=== PATIENT | male | born 1950 | race Asian ===

== ENCOUNTER 2019-05-01 10:16 | Emergency (ER) | payer OTHER ==
[~2019-05-01] VITALS: Ht 170.2 cm; Wt 82.1 kg
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
--- NOTE | 2019-05-01 10:52 | NUR ---
x-ray tech at bedside
[2019-05-01 11:46] VITALS: BP 132/70
--- NOTE | 2019-05-01 11:48 | NUR ---
Patient discharged to home in stable condition. Written and verbal after care instructions given. Patient verbalizes understanding of instruction.
== END 2019-05-01 11:48 | disposition home or self-care (01) ==
LOC: ER 10:20
DX: S80.12XA Contusion of left lower leg, initial encounter (principal); I10 Essential (primary) hypertension; V49.49XA Driver injured in collision with other motor vehicles in traffic accident, initial encounter; Y93.89 Activity, other specified; Y92.488 Other paved roadways as the place of occurrence of the external cause; Y99.8 Other external cause status
CPT/HCPCS: 71045-TC; 73590-TC